=== PATIENT | male | born 1995 | race Caucasian/White ===

== ENCOUNTER 2017-06-03 09:33 | Day surgery (SDC) | payer BC ==
[~2017-06-03] VITALS: Ht 182.9 cm; Wt 146.2 kg
[2017-06-03 11:09] VITALS: Ht 182.9 cm; Wt 146.2 kg
[2017-06-03] MEDS ORDERED: NO MEDS (11:10)
[2017-06-03] MEDS ORDERED: FENTAnyl 50 MCG/ML VIAL ONE ×2 (11:18→12:08)
[2017-06-03] MEDS ORDERED: PROPOFOL 20 ML ONE (11:18)
[2017-06-03] MEDS ORDERED: MIDAZOLAM 1 MG/ML 2 ML INJ ONE (11:18)
[2017-06-03 11:44] VITALS: BP 137/80; PULSE 91; RESP 18
[2017-06-03 12:40] VITALS: BP 163/81; PULSE 80; RESP 16
--- NOTE | 2017-06-03 14:02 | OPPN ---
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
--- NOTE | 2017-06-04 07:22 | GILP ---
DATE OF PROCEDURE: 06/03/2017 PROCEDURE: Esophagogastroduodenoscopy. PREOPERATIVE DIAGNOSIS: Patient presenting with history of chronic epigastric pain, unresponsive to routine therapy, he has lost weight. Rule out peptic ulcer disease, gastric neoplasm. POSTOPERATIVE DIAGNOSES: 1. Erosive gastritis of the antrum. 2. Grade II reflux esophagitis. DESCRIPTION OF PROCEDURE: After informed written consent was obtained, the patient was given intrav enous anesthesia by anesthesiologist, Dr. Nagel. When the patient became somnolent, the Identifiedu s video upper endoscope was introduced into the oropharynx, then into the esophagus. Esophagus show ed evidence of linear erythematous area for about 2 cm from the GE junction indicating Pine c lassification B of reflux esophagitis. Multiple biopsies were obtained to rule out Tapia's esopha marie. Scope at this time was advanced into the stomach. Stomach showed evidence of multiple erosion s in the antrum with no ulcers, no neoplasm. The rest of the stomach appeared normal. Biopsy was d one from the antrum, the lesser curvature and the fundus to rule out H. pylori infection. The duode num mucosa up to the end of the third portion appeared normal. Endoscope at this time was withdrawn and on the way out, no additional abnormalities detected and the procedure was terminated. PLAN: Recommend omeprazole 40 mg a day before each breakfast and wait for the pathology report. Dictated By: SEPIDEH PORTER/JAS Conf#: [id number] DID#: [id number]
== END 2017-06-03 18:15 | disposition home or self-care (01) ==
LOC: GIL 09:33
PROVIDERS: ATTEND Internal Medicine Gastroenterology
DX: K29.50 Unspecified chronic gastritis without bleeding (principal); K21.0 Gastro-esophageal reflux disease with esophagitis
CPT/HCPCS: 43239; 88305; 88312; J2250; J3010; Z7610

== ENCOUNTER 2017-07-01 11:05 | Emergency (ER) | END 2017-07-01 15:24 | disposition left against medical advice (07) ==